=== PATIENT | female | born 1970 | race Caucasian/White ===

== ENCOUNTER 2018-07-10 11:27 | Observation (INO) ==
[2018-07-10] MEDS ORDERED: Labetalol HCl Inj 100 MG/20 ML Vial IV.PUSH ONE (11:39)
--- NOTE | 2018-07-10 11:45 | ED ---
HPI General Chief complaint: Extremity Problem,Nontraumatic Stated complaint: Rt Side weakness Time Seen by Provider: 07/10/18 11:32 Source: patient, family, EMS and RN notes reviewed Mode of arrival: EMS History of Present Illness HPI narrative: 47yF presenting with right upper extremity weakness. The patient states that she was at work around 9 AM when she began to notice that it was difficult to lift things with her right arm. She denies difficulty speaking/ aphasia/ slurred speech, blurred vision, facial droop, extremity numbness/ tingling, or weakness of any of her other extremities. She has a history of hypertension but stopped taking her medications about a year ago (thinks that she was on atenolol and triamterene but isn't sure). No history of CVA or TIA. Family history significant for mother with HTN, no family history of CVA or TIA. Related Data Home Medications Medication Instructions Recorded Confirmed No Known Home Medications 07/10/18 07/10/18 Allergies Allergy/AdvReac Type Severity Reaction Status Date / Time codeine Allergy Severe "HYPER" Verified 07/10/18 11:39 Review of Systems ROS: all other systems reviewed are negative Constitutional Denies headache(s) Eyes Denies blurry vision Cardiovascular Denies chest pain Respiratory Denies cough Gastrointestinal Denies abdominal pain and Reports nausea Genitourinary Denies dysuria Musculoskeletal Denies back pain Neurologic Denies confusion, Denies paresthesias and Reports weakness Psychiatric Denies confusion PMFSH History History Provided By: Patient Medical History Medical History Hypertension (Acute) Surgical History Surgical History No history of previous surgery (Acute) Social History Social History Substance History: No History of Abuse Smoking Status: Heavy tobacco smoker Tobacco Type: Cigarettes How Often Do You Have a Drink Containing Alcohol: 2 to 4 times a month Recent Travel in [facility] within the Last 8 Weeks: No Recent Out of Country Travel within the Last 8 Weeks: No Exam Const General: healthy appearing and no acute distress HENMT Head: normocephalic and atraumatic Face and sinus: normal facial exam Eyes General: appearance normal, both eyes and all related structures Pupils: PERRL Chest Chest: normal inspection of the chest Resp Effort & Inspection: normal respiratory effort Auscultation: no rhonchi and no wheezes Cardio Rate: regular rate Rhythm: regular rhythm Other: Hypertensive (210/120 on arrival) GI Inspection: non-distended Palpation: soft and nontender Skin General: no rashes or lesions noted Neuro General: alert, awake and oriented x3 Other: NIHSS 0 Speech clear and fluent, no slurred speech or aphasia Able to name 2 objects, alert and oriented x 3 No facial droop, tongue and uvula midline Pupils 3 mm and reactive bilaterally No nystagmus, visual avila intact Motor strength 5/5 in all extremities, nursing center tutor strength 5/5 bilaterally, sensation intact to all extremities No pronator drift or dysmetria No focal neuro deficits Psych Affect: normal affect Course Initial Documented Vital Signs Temperature 98.7 F 07/10/18 11:41 Pulse Rate 94 H 07/10/18 11:41 Respiratory Rate 18 07/10/18 11:41 Blood Pressure 211/120 H 07/10/18 11:41 Pulse Oximetry 99 07/10/18 11:41 Last Documented Vital Signs Temperature 98.7 F 07/10/18 11:41 Pulse Rate 80 07/10/18 13:42 Respiratory Rate 18 07/10/18 13:42 Blood Pressure 189/98 H 07/10/18 13:42 Pulse Oximetry 98 07/10/18 13:42 NIH Stroke Scale NIHSS Time Completed NIHSS Time Completed: 11:45 NIH Stroke Scale Level of Consciousness: 0-Alert Orientation Questions: 0-Answers both correct Responds to Commands: 0-Both tasks correct Gaze Eye Movement: 0-Horizontal movement WNL Visual Avila: 0-No visual field defect Facial Movement: 0-Normal Motor Functions Arm LEFT: 0-No drift Motor Functions Arm RIGHT: 0-No drift Motor Functions Leg LEFT: 0-No drift Motor Functions Leg RIGHT: 0-No drift Limb Ataxia: 0-No ataxia Sensory Loss: 0-No sensory loss Best Language: 0-Normal Articulation: 0-Normal Extinction or Inattention Sensory: 0-Absent Total: 0 Medical Decision Making MDM Narrative Medical decision making narrative: Assessment: 47yF presenting with subjective RUE weakness Plan: A stroke alert was NOT called as the patient has no deficits on exam, NIHSS 0 EKG and monitor BP control Labs CXR CT head (w/ w/o contrast), CT neck with contrast Reassess Addendum: Patient's BP improved to 180s/100s with 1 dose of IV labetalol. She reports improvement in subjective weakness of RUE after BP improved. Workup thus far is essentially unremarkable, symptoms likely TIA vs hypertensive urgency. This patient will need further workup and cardiac monitoring. Case discussed with Dr. Rodriguez of [facility], who agrees with obs level of care. I explained these results and plan with the patient and her ; they understand and agree. Differential Diagnosis Differential Diagnosis: Differential diagnosis includes, but is not limited to: TIA, ICH, aneurysm, hypertensive emergency, radiculopathy Medical Records Medical records reviewed: Yes I reviewed the patient's medical records. Lab Data Lab results reviewed: Yes I reviewed the patient's lab results. Result diagrams: 07/10/18 12:00 07/10/18 12:00 Lab Results 07/10/18 07/10/18 07/10/18 Range/Units 11:32 12:00 12:00 CBC w Diff WBC (4.0-11.0) th/mm3 RBC (4.00-5.30) mil/mm3 Hgb (11.6-15.3) gm/dL Hct (35.0-46.0) % MCV (80.0-100.0) fL MCH (27.0-34.0) pg MCHC (32.0-36.0) % RDW (11.6-17.2) % Plt Count (150-450) th/mm3 MPV (7.0-11.0) fL Neut % (Auto) (16.0-70.0) % Lymph % (Auto) (9.0-44.0) % [place] % (Auto) (0.0-8.0) % Eos % (Auto) (0.0-4.0) % Baso % (Auto) (0.0-2.0) % Neut # (Auto) (1.8-7.7) th/mm3 Lymph # (Auto) (1.0-4.8) th/mm3 [place] # (Auto) (0.0-0.9) th/mm3 Eos # (Auto) (0.0-0.4) th/mm3 Baso # (Auto) (0.0-0.2) th/mm3 WBC Differential Differential Comment PT 9.8 (9.8-11.6) sec INR 1.0 Ratio APTT 23.9 L (24.3-30.1) sec Sodium 140 (136-145) meq/L Potassium 3.7 (3.5-5.1) meq/L Chloride 105 (98-107) meq/L Carbon Dioxide 29.7 (21.0-32.0) meq/L Anion Gap 5 (5-15) meq/L BUN 15 (7-18) mg/dL Creatinine 0.75 (0.50-1.00) mg/dL Estimated GFR 82 L (>89) mL/min POC Glucose 108 (68-110) mg/dl Random Glucose 98 (74-106) mg/dL Calcium 9.1 (8.5-10.1) mg/dL Total Bilirubin 0.5 (0.2-1.0) mg/dL AST 16 (15-37) U/L ALT 24 (10-53) U/L Alkaline Phosphatase 125 H (45-117) U/L Troponin I Less than 0.02 L (0.02-0.05) ng/mL Total Protein 7.8 (6.4-8.2) g/dL Albumin 4.0 (3.4-5.0) g/dL 07/10/18 Range/Units 12:00 CBC w Diff Auto diff final WBC 10.3 (4.0-11.0) th/mm3 RBC 3.95 L (4.00-5.30) mil/mm3 Hgb 13.4 (11.6-15.3) gm/dL Hct 38.8 (35.0-46.0) % MCV 98.1 (80.0-100.0) fL MCH 33.8 (27.0-34.0) pg MCHC 34.5 (32.0-36.0) % RDW 12.0 (11.6-17.2) % Plt Count 281 (150-450) th/mm3 MPV 8.5 (7.0-11.0) fL Neut % (Auto) 61.8 (16.0-70.0) % Lymph % (Auto) 25.7 (9.0-44.0) % [place] % (Auto) 8.3 H (0.0-8.0) % Eos % (Auto) 3.5 (0.0-4.0) % Baso % (Auto) 0.7 (0.0-2.0) % Neut # (Auto) 6.3 (1.8-7.7) th/mm3 Lymph # (Auto) 2.6 (1.0-4.8) th/mm3 [place] # (Auto) 0.9 (0.0-0.9) th/mm3 Eos # (Auto) 0.4 (0.0-0.4) th/mm3 Baso # (Auto) 0.1 (0.0-0.2) th/mm3 WBC Differential . Differential Comment . PT (9.8-11.6) sec INR Ratio APTT (24.3-30.1) sec Sodium (136-145) meq/L Potassium (3.5-5.1) meq/L Chloride (98-107) meq/L Carbon Dioxide (21.0-32.0) meq/L Anion Gap (5-15) meq/L BUN (7-18) mg/dL Creatinine (0.50-1.00) mg/dL Estimated GFR (>89) mL/min POC Glucose (68-110) mg/dl Random Glucose (74-106) mg/dL Calcium (8.5-10.1) mg/dL Total Bilirubin (0.2-1.0) mg/dL AST (15-37) U/L ALT (10-53) U/L Alkaline Phosphatase (45-117) U/L Troponin I (0.02-0.05) ng/mL Total Protein (6.4-8.2) g/dL Albumin (3.4-5.0) g/dL Imaging Data Radiologist's impression: Head CT 07/10/18 11:39 CONCLUSION: 1. Negative CT Head non contrast. . Head CTA 07/10/18 11:43 CONCLUSION: Intracranial vessels are all patent without aneurysmal disease. Neck CTA 07/10/18 11:43 CONCLUSION: 1. Negative CTA Carotid. 2. No evidence of significant atherosclerotic plaque, steno-occlusive disease, intimal dissection or vasculopathy. Chest X-Ray 07/10/18 11:51 CONCLUSION: No acute cardiopulmonary disease. ECG Data Attestation: I personally reviewed and interpreted this ECG as follows: Interpretation: Rate: 81 BPM Rhythm: Sinus [place]: Normal Intervals: Normal intervals, no blocks, QTc 430 ms Q waves: aVL T waves: Inverted in aVL ST segments: No elevations or depressions Impression: Non-specific EKG, no previous EKG available for comparison. Discharge Plan Discharge Disposition Patient Disposition: 30 Still Patient Discharge Condition Condition: Stable Discharge Details Diagnosis: TIA (transient ischemic attack), Hypertensive urgency Physicians Team ED Provider: Sahra Belcher Primary Care Provider: NON STAFF,PROVIDER Rxs /Orders / Referrals /Forms Prescriptions: No Action No Known Home Medications RF: 0 Status ED Status: With Doctor
[2018-07-10 12:09] LABS: Baso # (Auto) 0.1 th/mm3 (0.0-0.2); Baso % (Auto) 0.7 % (0.0-2.0); Eos # (Auto) 0.4 th/mm3 (0.0-0.4); Eos % (Auto) 3.5 % (0.0-4.0); Hematocrit 38.8 % (35.0-46.0); Hemoglobin 13.4 gm/dL (11.6-15.3); Lymph # (Auto) 2.6 th/mm3 (1.0-4.8); Lymph % (Auto) 25.7 % (9.0-44.0); Mean Corpuscular HGB Conc 34.5 % (32.0-36.0); Mean Corpuscular Hemoglobin 33.8 pg (27.0-34.0); Mean Corpuscular Volume 98.1 fL (80.0-100.0); Mean Platelet Volume 8.5 fL (7.0-11.0); Mono # (Auto) 0.9 th/mm3 (0.0-0.9); Mono % (Auto) 8.3 % (0.0-8.0); Neut # (Auto) 6.3 th/mm3 (1.8-7.7); Neut % (Auto) 61.8 % (16.0-70.0); Platelet Count 281 th/mm3 (150-450); Red Blood Count 3.95 mil/mm3 (4.00-5.30); White Blood Count 10.3 th/mm3 (4.0-11.0)
[2018-07-10 12:18] LABS: Chloride 105 meq/L (98-107); Potassium 3.7 meq/L (3.5-5.1); Sodium 140 meq/L (136-145)
[2018-07-10 12:23] LABS: Activated Partial Thrombo Time 23.9 sec (24.3-30.1); Anion Gap 5 meq/L (5-15); Blood Urea Nitrogen 15 mg/dL (7-18); Calcium 9.1 mg/dL (8.5-10.1); Carbon Dioxide 29.7 meq/L (21.0-32.0); Glucose,Random 98 mg/dL (74-106); Prothrombin Time 9.8 sec (9.8-11.6)
--- NOTE | 2018-07-10 12:24 | XR ---
EXAM DATE: 07/10/2018 12:12 PM EDT AGE/SEX: 47 years / Female INDICATIONS: Right side weakness. CLINICAL DATA: This is the patient's initial encounter. Patient reports that signs and symptoms have been present for 1 day and indicates a pain score of 3/10. MEDICAL/SURGICAL HISTORY: None. None. COMPARISON: No prior exams available for comparison. FINDINGS: A single AP view of the chest demonstrates the lungs to be symmetrically aerated without evidence of mass, infiltrate or effusion. The cardiomediastinal contours are unremarkable. Osseous structures a re intact. CONCLUSION: No acute cardiopulmonary disease. Electronically signed by: Rony Slater MD 07/10/2018 12:22 PM EDT
[2018-07-10 12:26] LABS: Glomerular Filtration Rate 82 mL/min (>89)
[2018-07-10 12:27] LABS: Alanine Aminotransferase 24 U/L (10-53); Aspartate Aminotransferase 16 U/L (15-37)
[2018-07-10 12:28] LABS: Total Protein 7.8 g/dL (6.4-8.2)
[2018-07-10 12:29] LABS: Alkaline Phosphatase 125 U/L (45-117)
--- NOTE | 2018-07-10 12:31 | CT ---
EXAM DATE: 07/10/2018 12:27 PM EDT AGE/SEX: 47 years / Female INDICATIONS: Right arm weakness. CLINICAL DATA: This is the patient's initial encounter. Patient reports that signs and symptoms have been present for 1 day and indicates a pain score of 0/10. MEDICAL/SURGICAL HISTORY: Hypertension. None. RADIATION DOSE: 49.44 CTDI (mGy) COMPARISON: No prior exams available for comparison. TECHNIQUE: CT of the head without contrast. Using automated exposure control and adjustment of the mA and/or kV according to patient size, radiation dose was kept as low as reasonably achievable to ob tain optimal diagnostic quality images. DICOM format image data is available electronically for revi ew and comparison. FINDINGS: Cerebrum: The ventricles are normal for age. No evidence of midline shift, mass lesion, hemorrhage or acute infarction. No extraaxial fluid collections are seen. Posterior Fossa: The cerebellum and brainstem are intact. The 4th ventricle is midline. The cerebe llopontine angle is unremarkable. Extracranial: The visualized portion of the orbits is intact. Skull: The calvaria is intact. No evidence of skull fracture. CONCLUSION: 1. Negative CT Head non contrast. . Electronically signed by: Mike Arellano MD 07/10/2018 12:30 PM EDT
--- NOTE | 2018-07-10 13:34 | CT ---
EXAM DATE: 07/10/2018 1:18 PM EDT AGE/SEX: 47 years / Female INDICATIONS: Right arm weakness. CLINICAL DATA: This is the patient's initial encounter. Patient reports that signs and symptoms have been present for 1 day and indicates a pain score of 0/10. MEDICAL/SURGICAL HISTORY: Hypertension. None. RADIATION DOSE: 42.22 CTDI (mGy) ; Combined studies COMPARISON: No prior exams available for comparison. TECHNIQUE: Volumetric scanning was performed using a multirow detector CT scanner during bolus infus ion of 85 ml Omnipaque 350 (iohexol) nonionic water-soluble contrast as a cumulative dose for multip le exams. The data was postprocessed with a variety of visualization algorithms including full-volu me maximum intensity projection, multiplanar sliding thin-slab reformation, curved-planar reformation , and surface-rendering techniques. Using automated exposure control and adjustment of the mA and/or kV according to patient size, radiation dose was kept as low as reasonably achievable to obtain opti mal diagnostic quality images. DICOM format image data is available electronically for review and co mparison. FINDINGS: Aortic Arch: There is a three-vessel origin of the great vessels from the aorta. No evidence of ost ial narrowing Right Carotid: The common carotid artery is intact. The carotid bulb has a normal configuration wit hout ulceration or narrowing. The internal carotid artery lumen is smooth without stenosis. The ext ernal carotid artery is intact. Left Carotid: The common carotid artery is intact. The carotid bulb has a normal configuration with out ulceration or narrowing. The internal carotid artery lumen is smooth without stenosis. The exte rnal carotid artery is intact. Vertebrals: The vertebral arteries have a symmetric diameter. No stenotic lesions are seen. Percent stenosis is calculated using the diameter of the stenotic region over the diameter of the nor mal distal internal carotid artery. CONCLUSION: 1. Negative CTA Carotid. 2. No evidence of significant atherosclerotic plaque, steno-occlusive disease, intimal dissection or vasculopathy. Electronically signed by: Haroon Lazar MD 07/10/2018 1:33 PM EDT
--- NOTE | 2018-07-10 13:38 | CT ---
EXAM DATE: 07/10/2018 1:17 PM EDT AGE/SEX: 47 years / Female INDICATIONS: Right arm weakness. CLINICAL DATA: This is the patient's initial encounter. Patient reports that signs and symptoms have been present for 1 day and indicates a pain score of 0/10. MEDICAL/SURGICAL HISTORY: Hypertension. None. RADIATION DOSE: 42.22 CTDI (mGy) ; Combined studies COMPARISON: [facility], CT HEAD W/O CONTRAST, 07/10/2018. . TECHNIQUE: Volumetric scanning was performed using a multi-row detector CT scanner during bolus infu yaniv of 85 ml Omnipaque 350 (iohexol) nonionic water-soluble contrast as a cumulative dose for multi ple exams. The data was post processed with a variety of visualization algorithms including full vo lume maximum intensity projection, multi-planar sliding thin slab reformation, curved planar reformat ion, and surface rendering techniques. Using automated exposure control and adjustment of the mA and /or kV according to patient size, radiation dose was kept as low as reasonably achievable to obtain o ptimal diagnostic quality images. DICOM format image data is available electronically for review and comparison. FINDINGS: There is excellent visualization of the major intracranial arteries out to the second-order branch ve ssels. There is no evidence for aneurysm, vessel truncation or stenosis, and no evidence for vascula r malformation. CONCLUSION: Intracranial vessels are all patent without aneurysmal disease. Electronically signed by: Philipp Hull MD 07/10/2018 1:37 PM EDT
[2018-07-10] MEDS ORDERED: Temazepam 15 MG Capsule PO PRN (14:30)
--- NOTE | 2018-07-10 15:07 | P.HPIM ---
History of Present Illness Primary Care Physician: PROVIDER NON STAFF Chief Complaint: Right arm heaviness and confusion History of Present Illness: Patient is a 39-year-old female with a history of uncontrolled hypertension secondary nonadherence. She comes into the hospital with 1 day of right arm heaviness and weakness with some foggy mentation. She notes no chest pain or shortness of breath. She has never had this before. She has known history of hypertension has been off medications because "she felt well ". Patient continues with tobacco at least a half pack a day for the last 30 years and works a high stress job she had a CTA head and neck and CT brain which are unremarkable for acute neurological component. Her blood pressure on arrival was 211/120. This is improved with labetalol. She is recommended for observation due to these symptoms - Diagnosis (1) Hypertensive urgency Review of Systems All other systems reviewed negative except as stated in [facility] - History History Provided By: Patient - Medical History Medical History: Medical History (Last Reviewed 07/10/18 @ 15:05 by Mariana Rodriguez MD) Hypertension - Surgical History Surgical History: Surgical History (Last Reviewed 07/10/18 @ 15:05 by Mariana Rodriguez MD) No history of previous surgery - Family History Family History: Family History (Last Updated 07/10/18 @ 15:05 by Mariana Rodriguez MD) Other No significant medical problems - Tobacco History Tobacco Use In Past 30 Days: Yes Smoking Status: Heavy tobacco smoker Tobacco Type: Cigarettes - Alcohol History How Often Do You Have a Drink Containing Alcohol: 2 to 4 times a month - Substance Use History Substance History: No History of Abuse - Travel History Recent Travel in the [place] Within the Last 8 Weeks: No Recent Travel Out of the Country Within the Last 8 Weeks: No - Immunization History Tetanus Immunization: >5 Years Hx Influenza Vaccine This Season: No Medications and Allergies Active Medications: Active Medications Carvedilol (Coreg) 12.5 mg PO BID RODRIGO Enalaprilat (Vasotec Inj) 1.25 mg IV.PUSH Q6H PRN PRN Reason: BLOOD PRESSURE MANAGEMENT Lactulose (Lactulose Liq) 30 ml PO DAILY PRN PRN Reason: SEVERE CONSITIPATION Losartan Potassium (Cozaar) 50 mg PO DAILY RODRIGO Metoclopramide HCl (Reglan Inj) 5 mg IV.PUSH Q6HR PRN; Protocol PRN Reason: NAUSEA OR VOMITING Temazepam (Restoril) 15 mg PO HS PRN PRN Reason: INSOMNIA Allergies Allergy/AdvReac Type Severity Reaction Status Date / Time codeine Allergy Severe "HYPER" Verified 07/10/18 11:39 Home Medications Medication Instructions Recorded Confirmed Type No Known Home Medications 07/10/18 07/10/18 History Exam Vital signs: Vital Signs 07/10/18 11:41 07/10/18 12:47 07/10/18 13:42 Temperature 98.7 F Pulse Rate 94 H 80 80 Respiratory Rate 18 Blood Pressure 211/120 H 180/103 H 189/98 H Pulse Oximetry 99 98 98 Intake & Output 07/09/18 07/10/18 07/10/18 18:59 06:59 18:59 Weight 63.503 kg Narrative: GENERAL: Well-nourished, well-developed patient. SKIN: Warm and dry. HEAD: Normocephalic. EYES: No scleral icterus. No injection or drainage. NECK: Supple, trachea midline. No JVD or lymphadenopathy. CARDIOVASCULAR: Regular rate and rhythm without murmurs, gallops, or rubs. RESPIRATORY: Breath sounds equal bilaterally. No accessory muscle use. GASTROINTESTINAL: Abdomen soft, non-tender, nondistended. MUSCULOSKELETAL: No cyanosis, or edema. BACK: Nontender without obvious deformity. No CVA tenderness. NEUROLOGICAL: Awake and alert. Cranial nerves II through XII intact. Motor and sensory grossly within normal limits. Five out of 5 muscle strength in all muscle groups. Normal speech. Results - Labs CBC & Chem 7: 07/10/18 12:00 07/10/18 12:00 Labs: Short CBC 07/10/18 Range/Units 12:00 WBC 10.3 (4.0-11.0) th/mm3 Hgb 13.4 (11.6-15.3) gm/dL Hct 38.8 (35.0-46.0) % Plt Count 281 (150-450) th/mm3 BMP 07/10/18 12:00 Sodium 140 Potassium 3.7 Chloride 105 Carbon Dioxide 29.7 BUN 15 Creatinine 0.75 Calcium 9.1 Cardiac Enzymes 07/10/18 Range/Units 12:00 Troponin I Less than 0.02 L (0.02-0.05) ng/mL Liver Function 07/10/18 Range/Units 12:00 Total Bilirubin 0.5 (0.2-1.0) mg/dL AST 16 (15-37) U/L ALT 24 (10-53) U/L Alkaline Phosphatase 125 H (45-117) U/L Albumin 4.0 (3.4-5.0) g/dL - Imaging Impressions Head CT 07/10/18 11:39 CONCLUSION: 1. Negative CT Head non contrast. . Head CTA 07/10/18 11:43 CONCLUSION: Intracranial vessels are all patent without aneurysmal disease. Neck CTA 07/10/18 11:43 CONCLUSION: 1. Negative CTA Carotid. 2. No evidence of significant atherosclerotic plaque, steno-occlusive disease, intimal dissection or vasculopathy. Chest X-Ray 07/10/18 11:51 CONCLUSION: No acute cardiopulmonary disease. Caprini VTE Risk Assessment Caprini VTE Risk Assessment: No/Low Risk (score <= 1) Caprini Risk Assessment Model: Point Value = 1 Point Value = 2 Point Value = 3 Point Value = 5 Age 41-60 Minor surgery BMI > 25 kg/m2 Swollen legs Varicose veins or History of unexplained or recurrent spontaneous Oral contraceptives or hormone replacement Sepsis (< 1 month) Serious lung disease, including pneumonia (< 1 month) Abnormal pulmonary function Acute myocardial infarction Congestive heart failure (< 1 month) History of inflammatory bowel disease Medical patient at bed rest Age 61-74 Arthroscopic surgery Major open surgery (> 45 min) Laparoscopic surgery (> 45 min) Malignancy Confined to bed (> 72 hours) Immobilizing plaster cast Central venous access Age >= 75 History of VTE Family history of VTE Factor V Leiden Prothrombin [id number] Lupus anticoagulant Anticardiolipin antibodies Elevated serum homocysteine Heparin-induced thrombocytopenia Other congenital or acquired thrombophilia Stroke (< 1 month) Elective arthroplasty Hip, pelvis, or leg fracture Acute spinal cord injury (< 1 month) Prophylaxis Regimen: Total Risk Factor Score Risk Level Prophylaxis Regimen 0-1 Low Early ambulation 2 Moderate Order ONE of the following: *Sequential Compression Device (SCD) *Heparin 5000 units SQ BID 3-4 Higher Order ONE of the following medications: *Heparin 5000 units SQ TID *Enoxaparin/Lovenox 40 mg SQ daily (WT < 150 kg, CrCl > 30 mL/min) *Enoxaparin/Lovenox 30 mg SQ daily (WT < 150 kg, CrCl > 10-29 mL/min) *Enoxaparin/Lovenox 30 mg SQ BID (WT < 150 kg, CrCl > 30 mL/min) AND/OR *Sequential Compression Device (SCD) 5 or more Highest Order ONE of the following medications: *Heparin 5000 units SQ TID (Preferred with Epidurals) *Enoxaparin/Lovenox 40 mg SQ daily (WT < 150 kg, CrCl > 30 mL/min) *Enoxaparin/Lovenox 30 mg SQ daily (WT < 150 kg, CrCl > 10-29 mL/min) *Enoxaparin/Lovenox 30 mg SQ BID (WT < 150 kg, CrCl > 30 mL/min) AND *Sequential Compression Device (SCD) Assessment and Plan - Assessment (1) Hypertensive urgency Code(s): I16.0 - Hypertensive urgency Status: Acute Plan: Continue with blood pressure management and patient education Patient advised discontinue tobacco Echocardiogram pending
[2018-07-10] MEDS: Carvedilol 12.5 MG Tablet PO SCH (20:01)
[2018-07-10 21:40] VITALS: RESP 20
[2018-07-11 07:53] LABS: Baso % (Auto) 0.5 % (0.0-2.0); Eos # (Auto) 0.5 th/mm3 (0.0-0.4); Eos % (Auto) 5.2 % (0.0-4.0); Hematocrit 35.4 % (35.0-46.0); Hemoglobin 12.5 gm/dL (11.6-15.3); Lymph # (Auto) 2.4 th/mm3 (1.0-4.8); Mean Corpuscular HGB Conc 35.2 % (32.0-36.0); Mean Corpuscular Hemoglobin 33.5 pg (27.0-34.0); Mean Corpuscular Volume 95.1 fL (80.0-100.0); Mean Platelet Volume 9.4 fL (7.0-11.0); Mono # (Auto) 0.8 th/mm3 (0.0-0.9); Mono % (Auto) 9.1 % (0.0-8.0); Neut # (Auto) 5.2 th/mm3 (1.8-7.7); Neut % (Auto) 58.2 % (16.0-70.0); Platelet Count 268 th/mm3 (150-450); Red Blood Count 3.72 mil/mm3 (4.00-5.30); Red Cell Distribution Width 12.7 % (11.6-17.2); White Blood Count 8.9 th/mm3 (4.0-11.0)
[2018-07-11] MEDS: Carvedilol 12.5 MG Tablet PO SCH ×2 (07:56→08:48)
[2018-07-11 07:57] LABS: Potassium 3.6 meq/L (3.5-5.1)
[2018-07-11 08:01] LABS: Calcium 8.8 mg/dL (8.5-10.1)
[2018-07-11 08:02] LABS: Carbon Dioxide 27.8 meq/L (21.0-32.0)
--- NOTE | 2018-07-11 09:02 | ECG ---
Date Performed: 07/10/2018 Time Performed: 12:04:40 PTAGE: 47 years EKG: Sinus rhythm NORMAL ECG NO PREVIOUS TRACING DOCTOR: Von Sow Interpretating Date/Time 07/11/2018 09:00:39
[2018-07-11 11:35] VITALS: O2SAT 94
--- NOTE | 2018-07-11 11:50 | P.PNIM ---
Subjective Interval history: Patient seen and evaluated today in follow-up for right arm weakness which appears to be resolved. Blood pressures improved on Coreg and losartan. Discharge plan discussed with patient. We are waiting her MRI Care plan discussed with patient and spouse Physical Exam Vital signs: Vital Signs 07/10/18 12:47 07/10/18 13:42 07/10/18 16:00 Temperature 98.4 F Pulse Rate 80 80 86 Respiratory Rate 16 18 18 Blood Pressure 180/103 H 189/98 H 212/91 H Pulse Oximetry 98 98 96 07/10/18 20:00 07/11/18 00:00 07/11/18 04:00 Temperature 96.9 F L 97.2 F L 97.6 F Pulse Rate 94 H 74 72 Respiratory Rate 20 20 20 Blood Pressure 184/90 H 169/86 H 125/84 Pulse Oximetry 100 97 97 07/11/18 07:55 07/11/18 08:00 07/11/18 11:34 Temperature 98.7 F 97.9 F Pulse Rate 78 84 77 Respiratory Rate 20 20 Blood Pressure 160/78 H 156/69 H Pulse Oximetry 95 94 L Intake & Output 07/10/18 07/11/18 07/11/18 18:59 06:59 18:59 Intake Total 240 / 240 500 / 500 Balance 240 / 240 500 / 500 Weight 62.9 kg 63.4 kg Intake: Oral 240 / 240 500 / 500 Other: # Voids 3 Weight On Admission 62.9 kg Narrative: GENERAL: Well-nourished, well-developed patient. SKIN: Warm and dry. HEAD: Normocephalic. EYES: No scleral icterus. No injection or drainage. NECK: Supple, trachea midline. No JVD or lymphadenopathy. CARDIOVASCULAR: Regular rate and rhythm without murmurs, gallops, or rubs. RESPIRATORY: Breath sounds equal bilaterally. No accessory muscle use. GASTROINTESTINAL: Abdomen soft, non-tender, nondistended. MUSCULOSKELETAL: No cyanosis, or edema. BACK: Nontender without obvious deformity. No CVA tenderness. NEUROLOGICAL: Awake and alert. Cranial nerves II through XII intact. Motor and sensory grossly within normal limits. Five out of 5 muscle strength in all muscle groups. Normal speech. Results - Labs CBC & Chem 7: 07/11/18 07:11 07/11/18 07:11 Laboratory Results - last 24 hr 07/10/18 07/10/18 07/10/18 12:00 12:00 12:00 CBC w Diff Auto diff final WBC 10.3 RBC 3.95 L Hgb 13.4 Hct 38.8 MCV 98.1 MCH 33.8 MCHC 34.5 RDW 12.0 Plt Count 281 MPV 8.5 Neut % (Auto) 61.8 Lymph % (Auto) 25.7 [place] % (Auto) 8.3 H Eos % (Auto) 3.5 Baso % (Auto) 0.7 Neut # (Auto) 6.3 Lymph # (Auto) 2.6 [place] # (Auto) 0.9 Eos # (Auto) 0.4 Baso # (Auto) 0.1 WBC Differential . Differential Comment . PT 9.8 INR 1.0 APTT 23.9 L Sodium 140 Potassium 3.7 Chloride 105 Carbon Dioxide 29.7 Anion Gap 5 BUN 15 Creatinine 0.75 Estimated GFR 82 L Random Glucose 98 Calcium 9.1 Total Bilirubin 0.5 AST 16 ALT 24 Alkaline Phosphatase 125 H Troponin I Less than 0.02 L Total Protein 7.8 Albumin 4.0 07/11/18 07/11/18 07:11 07:11 CBC w Diff Auto diff final WBC 8.9 RBC 3.72 L Hgb 12.5 Hct 35.4 MCV 95.1 MCH 33.5 MCHC 35.2 RDW 12.7 Plt Count 268 MPV 9.4 Neut % (Auto) 58.2 Lymph % (Auto) 27.0 [place] % (Auto) 9.1 H Eos % (Auto) 5.2 H Baso % (Auto) 0.5 Neut # (Auto) 5.2 Lymph # (Auto) 2.4 [place] # (Auto) 0.8 Eos # (Auto) 0.5 H Baso # (Auto) 0.0 WBC Differential . Differential Comment . PT INR APTT Sodium 142 Potassium 3.6 Chloride 107 Carbon Dioxide 27.8 Anion Gap 7 BUN 15 Creatinine 0.75 Estimated GFR 82 L Random Glucose 106 Calcium 8.8 Total Bilirubin AST ALT Alkaline Phosphatase Troponin I Total Protein Albumin - Imaging Impressions Head CT 07/10/18 11:39 CONCLUSION: 1. Negative CT Head non contrast. . Head CTA 07/10/18 11:43 CONCLUSION: Intracranial vessels are all patent without aneurysmal disease. Neck CTA 07/10/18 11:43 CONCLUSION: 1. Negative CTA Carotid. 2. No evidence of significant atherosclerotic plaque, steno-occlusive disease, intimal dissection or vasculopathy. Chest X-Ray 07/10/18 11:51 CONCLUSION: No acute cardiopulmonary disease. Assessment and Plan - Assessment (1) Hypertensive urgency Code(s): I16.0 - Hypertensive urgency Status: Acute Plan: Continue with blood pressure management and patient education Patient advised discontinue tobacco Echocardiogram and MRI are unremarkable discharge home Heart healthy diet Activity unrestricted
[2018-07-11] MEDS ORDERED: Gadobutrol PF 7.5 MMOL/7.5 ML Vial (for RAD) IV.SIG ONE (13:47)
--- NOTE | 2018-07-11 13:58 | MR ---
EXAM DATE: 07/11/2018 1:53 PM EDT AGE/SEX: 47 years / Female INDICATIONS: Right sided weakness. CLINICAL DATA: This is the patient's initial encounter. Patient reports that signs and symptoms have been present for 1 day and indicates a pain score of 0/10. MEDICAL/SURGICAL HISTORY: Hypertension. None. COMPARISON: [facility], CT HEAD W/O CONTRAST, 07/10/2018. . TECHNIQUE: Multiplanar, multisequence examination of the brain was performed without and with 6cc ml Gadavist (gadobutrol) contrast as a single exam dose. FINDINGS: Cerebrum: The ventricles are normal for age. No evidence of midline shift, mass lesion, hemorrhage or acute infarction. No extraaxial fluid collections are seen. The pituitary gland and suprasellar cistern are normal in configuration. White Matter: No significant signal abnormalities are seen in the white matter. Posterior Fossa: The cerebellum and brainstem are intact. The 4th ventricle is midline. The cerebel lopontine angle is unremarkable. The cerebellar tonsils are normal in position. Diffusion Imaging: No focal areas of restricted diffusion are seen. No evidence of acute infarction . Extracranial: The visualized portions of the orbits are unremarkable. Mild mucosal thickening is not ed involving the lower frontal sinuses. Otherwise the paranasal sinuses are grossly clear. No air-flu id levels are demonstrated. Post Contrast: No abnormal areas of parenchymal or dural enhancement. No evidence of blood-brain ba rrier breakdown. CONCLUSION: 1. Unremarkable MRI of the brain. 2. Mild chronic sinus disease involving the lower frontal sinuses. Electronically signed by: Gabo Conteh MD 07/11/2018 1:57 PM EDT
--- NOTE | 2018-07-11 14:42 | ECHRPT ---
Indication: Hypertensive Heart Disease CONCLUSIONS The left ventricular systolic function is normal with an estimated ejection fraction in the range o f 55-60%. Mild concentric left ventricular hypertrophy. Normal left ventricular size. Trace mitral valve regurgitation. There is mild tricuspid valve regurgitation. The estimated pulmonary arterial pressure is 29.9 mmHg. Trivial pulmonary valve regurgitation. BP: / HR: Rhythm: Sinus MEASUREMENTS (Male / Female) Normal Values Technical Quality:Fair 2D ECHO LV Diastolic Diameter PLAX 4.0 cm 4.2 - 5.9 / 3.9 - 5.3 cm LV Systolic Diameter PLAX 2.8 cm IVS Diastolic Thickness 1.1 cm 0.6 - 1.0 / 0.6 - 0.9 cm LVPW Diastolic Thickness 1.0 cm 0.6 - 1.0 / 0.6 - 0.9 cm LV Relative Wall Thickness 0.5 RV Internal Dim ED PLAX 3.1 cm LVOT Diameter 1.9 cm LA Systolic Diameter LX 3.7 cm 3.0 - 4.0 / 2.7 - 3.8 cm M-MODE Aortic Root Diameter MM 2.6 cm LA Systolic Diameter MM 3.7 cm LA Ao Ratio MM 1.4 AV Cusp Separation MM 2.1 cm DOPPLER AV Peak Velocity 149.0 cm/s AV Peak Gradient 8.9 mmHg LVOT Peak Velocity 110.0 cm/s LVOT Peak Gradient 4.8 mmHg AV Area Cont Eq pk 2.1 cm MV Area PHT 4.1 cm Mitral E Point Velocity 69.6 cm/s Mitral A Point Velocity 57.3 cm/s Mitral E to A Ratio 1.2 LV E' Lateral Velocity 5.4 cm/s Mitral E to LV E' Lateral Ratio 13.0 LV E' Septal Velocity 5.7 cm/s Mitral E to LV E' Septal Ratio 12.3 TR Peak Velocity 223.0 cm/s TR Peak Gradient 19.9 mmHg Right Atrial Pressure 10.0 mmHg Pulmonary Artery Systolic Pressu 29.9 mmHg Right Ventricular Systolic Press 29.9 mmHg FINDINGS LEFT VENTRICLE The left ventricular systolic function is normal with an estimated ejection fraction in the range of 55-60%. Mild concentric left ventricular hypertrophy. Normal left ventricular size. RIGHT VENTRICLE Normal right ventricular size and systolic function. LEFT ATRIUM The left atrial size is normal. RIGHT ATRIUM The right atrial size is normal. ATRIAL SEPTUM Normal atrial septal thickness without atrial level shunting by limited color doppler interrogation. AORTA The aortic root and proximal ascending aorta are normal in size on limited imaging. MITRAL VALVE Trace mitral valve regurgitation. AORTIC VALVE Trileaflet aortic valve. No aortic valve stenosis or regurgitation. TRICUSPID VALVE Structurally normal tricuspid valve. There is mild tricuspid valve regurgitation. The estimated pulmonary arterial pressure is 29.9 mmHg. PULMONARY VALVE Trivial pulmonary valve regurgitation. VESSELS The inferior vena cava is normal in size. PERICARDIUM No pericardial effusion. Tam Juarez MD (Electronically Signed) Final Date:11 July 2018 14:41
[2018-07-11 15:08] VITALS: BP 150/70; PULSE 79; TEMP 98
== END 2018-07-11 16:14 | disposition home or self-care (01) ==
LOC: PHED 11:27 → PH3 11:27 → PHEDA 11:27 → PH3 15:10
PROVIDERS: ADMIT Hospitalist; ATTEND Hospitalist
DX: Z82.49 Family history of ischemic heart disease and other diseases of the circulatory system; F17.210 Nicotine dependence, cigarettes, uncomplicated; I10 Essential (primary) hypertension; I16.0 Hypertensive urgency; Z88.5 Allergy status to narcotic agent